=== PATIENT | female | born 1985 | race Caucasian/White ===

== ENCOUNTER 2019-07-02 19:36 | Emergency (ER) | payer OTHER ==
[~2019-07-02] VITALS: Ht 167.6 cm; Wt 90.7 kg
--- NOTE | 2019-07-02 19:40 | NUR ---
Patient to ER bed 04 to gown for evaluation. Side rails up.
[2019-07-02 19:41] VITALS: BP_SYST 200
--- NOTE | 2019-07-02 19:50 | NUR ---
Dr. Barnes bedside for Pt eval
--- NOTE | 2019-07-02 19:55 | NUR ---
Pt BIB [employer] to ED C/O gradual onset of a warm swollen face due to possible allergic reaction that began earlier today. Pt reports having had a bee sting to her left pinky, which she sought treatment and was prescribed an antibiotics Bactrim. She took the antibiotic yesterday, for one day, and today she reports her face and neck region became swollen. No other injuries and or complaints noted. VS trending stable, no s/s of acute distress. Resting on [employer] rails up
[2019-07-02] MEDS ORDERED: DIPHENHYDRAMINE INJ 50 MG/ML VIAL IM ONE (20:00)
[2019-07-02] MEDS ORDERED: methylPREDNISolone SOD SUCC/PF 62.5 MG/ML VIAL IM ONE (20:00)
--- NOTE | 2019-07-02 20:05 | NUR ---
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
--- NOTE | 2019-07-02 20:40 | NUR ---
Dr. Barnes bedside for Pt update
[2019-07-02 20:50] VITALS: BP_SYST 200
--- NOTE | 2019-07-02 20:50 | NUR ---
Patient given written and verbal discharge instructions and verbalizes understanding. ER MD discussed with patient the results and treatment provided. Patient in stable condition. ID arm band removed. Rx of Prednisone and Amanda given. Patient educated on pain management and to follow up with PMD. Pain Scale 0/10 Opportunity for questions provided and answered. Medication side effect fact sheet provided.
== END 2019-07-02 20:50 | disposition home or self-care (01) ==
LOC: SED 19:36
DX: R22.0 Localized swelling, mass and lump, head (principal); T36.8X5A Adverse effect of other systemic antibiotics, initial encounter; Z88.8 Allergy status to other drugs, medicaments and biological substances; Y92.89 Other specified places as the place of occurrence of the external cause
CPT/HCPCS: 96372; 99283; J1200; J2930